=== PATIENT | male | born 1955 | race Caucasian/White ===

== ENCOUNTER 2019-12-04 13:04 | Outpatient (CLI) | payer BC ==
--- NOTE | 2019-12-04 13:44 | CT ---
EXAM: CT chest without contrast per low-dose cancer screening protocol HISTORY: History of smoking and nicotine dependence COMPARISON: None TECHNIQUE: Multiple contiguous axial images were obtained in a CT of the chest without contrast per l ow-dose cancer screening protocol. Sagittal and coronal reformats were performed. FINDINGS: Pulmonary nodules: No suspicious pulmonary nodules are seen. No focal infiltrates are seen. Pleural space: No pneumothorax or pleural effusion are seen. Heart: The heart is normal in size. Atherosclerotic calcifications in the coronary arteries and aorta . Mediastinum: No hilar or mediastinal lymphadenopathy appreciated on this limited noncontrast examinat ion. Bones: Status post sternotomy.. Visualized subdiaphragmatic structures: Left renal cyst. IMPRESSION: Lung RADS category 1-negative.
== END 2019-12-04 13:05 | disposition home or self-care (01) ==
LOC: CT 13:04
PROVIDERS: ATTEND Family Medicine
DX: Z12.2 Encounter for screening for malignant neoplasm of respiratory organs (principal); F17.210 Nicotine dependence, cigarettes, uncomplicated
CPT/HCPCS: G0297

== ENCOUNTER 2021-03-24 07:18 | Outpatient (CLI) | payer BC, MEDICARE | END 2021-03-24 07:19 | disposition home or self-care (01) | LOC: BICULT 07:18 | PROVIDERS: ATTEND Family Medicine | DX: Z13.6 Encounter for screening for cardiovascular disorders (principal); Z12.2 Encounter for screening for malignant neoplasm of respiratory organs; F17.210 Nicotine dependence, cigarettes, uncomplicated; R91.1 Solitary pulmonary nodule | CPT/HCPCS: 71271; 76775 ==

== ENCOUNTER 2021-04-03 07:15 | Outpatient (CLI) | payer BC, MEDICARE ==
[2021-04-03] MEDS ORDERED: Iopamidol-370 76% 500 ML 1 ML ONE (09:52)
== END 2021-04-03 07:16 | disposition home or self-care (01) ==
LOC: BICCT 07:15
PROVIDERS: ATTEND Urology
DX: R31.29 Other microscopic hematuria (principal); N28.1 Cyst of kidney, acquired; I70.90 Unspecified atherosclerosis; K57.30 Diverticulosis of large intestine without perforation or abscess without bleeding
CPT/HCPCS: 74178; Q9967

== ENCOUNTER 2021-06-08 15:25 | Outpatient (CLI) | payer BC, MEDICARE | END 2021-06-08 15:26 | disposition home or self-care (01) | LOC: ULT 15:25 | PROVIDERS: ATTEND Family Medicine | DX: M79.604 Pain in right leg (principal) ==

== ENCOUNTER 2021-08-20 11:40 | Outpatient (CLI) | payer BC, MEDICARE | END 2021-08-20 11:41 | disposition home or self-care (01) | LOC: BICRAD 11:40 | PROVIDERS: ATTEND Family Medicine | DX: S93.432A Sprain of tibiofibular ligament of left ankle, initial encounter (principal) ==

== ENCOUNTER 2022-03-26 07:43 | Outpatient (CLI) | payer BC, MEDICARE | END 2022-03-26 07:44 | disposition home or self-care (01) | LOC: BICCT 07:43 | PROVIDERS: ATTEND Family Medicine | DX: Z12.31 Encounter for screening mammogram for malignant neoplasm of breast (principal); F17.210 Nicotine dependence, cigarettes, uncomplicated; R91.8 Other nonspecific abnormal finding of lung field; I25.10 Atherosclerotic heart disease of native coronary artery without angina pectoris | CPT/HCPCS: 71271 ==

== ENCOUNTER 2022-03-27 17:17 | Inpatient (IN) | payer BC, MEDICARE ==
[~2022-03-27 17:17] MED LIST: Iopamidol 370 76% 100 ML VIAL ONE
[2022-03-27 17:46] LABS: #Eosinphils 0.1 thou/uL (0.0-0.7); #Lymphocytes 1.1 thou/uL (1.20-3.40); #Monocytes 1.4 thou/uL (0.11-0.59); #Neutrophils 11.1 thou/uL (1.40-6.50); %Basophils 0.2 % (0.0-1.0); %Eosinophils 0.7 % (0.0-10.0); %Lymphocytes 8.2 % (21.0-51.0); %Monocytes 10.1 % (0.0-10.0); %Neutrophils 80.8 % (42.0-75.0); Hemoglobin 16.6 g/dL (14.0-18.0); Mean Corpuscular HGB CONC 33.2 g/dL (32.0-36.0); Mean Corpuscular Hemoglobin 32.7 pg (27.0-31.0); Mean Corpuscular Volume 98.6 fL (78.0-98.0); Mean Platelet Volume 8.4 fL (7.4-10.4); Platelet Count 152 thou/uL (130-400); RBC Distribution Width 12.5 % (11.5-14.5); Red Blood Cell (RBC) Count 5.06 mill/uL (4.70-6.10); White Blood Cell (WBC) Count 13.8 thou/uL (4.8-10.8)
[2022-03-27 18:08] LABS: ALT (SGPT) 45 U/L (8-55); AST (SGOT) 30 U/L (5-34); Albumin 4.1 g/dL (3.4-4.8); Alkaline Phosphatase 72 U/L (40-110); Anion Gap 15 mmol/L (10-20); BUN (Urea Nitrogen) 13 mg/dL (8.4-25.7); Bilirubin, Total 1.3 mg/dL (0.2-1.2); Calc. Creatinine Clearance 0 mL/min (70-130); Calcium 8.8 mg/dL (7.8-10.44); Carbon Dioxide 24 mmol/L (23-31); Chloride 108 mmol/L (98-107); Globulin 2.5 g/dL (2.4-3.5); Glucose 104 mg/dL (80-115); Protein, Total 6.6 g/dL (5.8-8.1); Sodium 143 mmol/L (136-145)
[2022-03-27] MEDS ORDERED: Albuterol Sulfate 2.5 mg/3 ml Neb ONE (18:31)
[2022-03-27] MEDS ORDERED: Azithromycin 500 MG VIAL ONE (19:41)
[2022-03-27] MEDS ORDERED: cefTRIAXone\\ROCEPHIN 1 GM VIAL ONE (19:41)
[2022-03-27] MEDS ORDERED: Ondansetron PF 4 MG/2 ML Vial IVP PRN (20:32)
[2022-03-27] MEDS ORDERED: Acetaminophen 650 MG Suppository PR PRN (20:32)
[2022-03-27] MEDS ORDERED: Ondansetron ODT 4 MG TAB PO PRN (20:32)
[2022-03-27] MEDS ORDERED: Acetaminophen 325 MG TAB PO PRN (20:32)
[2022-03-27 21:43] VITALS: BMI 27.9
[2022-03-27 22:17] LABS: SARS-CoV-2 NAA Rapid Test Not Detected (NotDetected)
[2022-03-27] MEDS ORDERED: Metoprolol Tartrate 5 MG/5 ML VIAL IVP PRN (23:28)
[2022-03-28] MEDS ORDERED: cefTRIAXone\\ROCEPHIN 1 GM in Sodium Chloride 0.9% 100 ML IVPB SCH (01:00)
[2022-03-28] MEDS ORDERED: Enoxaparin Sodium 80 MG/0.8 ML SYRINGE SC SCH (01:00)
[2022-03-28 01:50] LABS: Troponin I 0.014 ng/mL (< 0.028)
[2022-03-28 01:52] LABS: Magnesium 1.6 mg/dL (1.6-2.6)
[2022-03-28 05:33] LABS: Anion Gap 12 mmol/L (10-20); BUN (Urea Nitrogen) 11 mg/dL (8.4-25.7); Calc. Creatinine Clearance 114 mL/min (70-130); Calcium 8.7 mg/dL (7.8-10.44); Carbon Dioxide 25 mmol/L (23-31); Chloride 106 mmol/L (98-107); Glucose 106 mg/dL (80-115); Potassium 3.6 mmol/L (3.5-5.1); Sodium 139 mmol/L (136-145)
[2022-03-28 05:35] LABS: #Basophils 0.1 thou/uL (0.0-0.2); #Lymphocytes 1.7 thou/uL (1.20-3.40); #Monocytes 1.6 thou/uL (0.11-0.59); #Neutrophils 8.9 thou/uL (1.40-6.50); %Basophils 0.4 % (0.0-1.0); %Eosinophils 0.3 % (0.0-10.0); %Monocytes 13.2 % (0.0-10.0); %Neutrophils 72.1 % (42.0-75.0); Hemoglobin 15.5 g/dL (14.0-18.0); Mean Corpuscular HGB CONC 33.2 g/dL (32.0-36.0); Platelet Count 124 thou/uL (130-400); RBC Distribution Width 12.5 % (11.5-14.5); Red Blood Cell (RBC) Count 4.58 mill/uL (4.70-6.10); White Blood Cell (WBC) Count 12.3 thou/uL (4.8-10.8)
[2022-03-28] MEDS: Atorvastatin Calcium 10 MG TAB PO SCH (08:07)
[2022-03-28] MEDS: Aspirin 325 MG TAB PO SCH (08:07)
[2022-03-28] MEDS ORDERED: Furosemide 20 MG/2 ML VIAL SLOW IVP SCH (11:45)
[2022-03-28] MEDS ORDERED: Potassium Chloride 20 MEQ TAB PO SCH (11:45)
[2022-03-28] MEDS ORDERED: Electrolyte Replacement Protocol 1 EACH FS SCH (13:15)
[2022-03-28] MEDS ORDERED: Magnesium 2 GM/50 ML(in water) 2 GM in Premix Bag 1 BAG IVPB SCH (14:15)
[2022-03-28] MEDS: Carvedilol 6.25 MG TAB PO SCH (15:49)
[2022-03-28] MEDS: Enoxaparin Sodium 80 MG/0.8 ML SYRINGE SC SCH ×2 (16:02→16:03)
[2022-03-28] MEDS: Azithromycin 500 MG in Sodium Chloride 0.9% 250 ML 250 ML IVPB SCH (20:25)
[2022-03-28] MEDS: cefTRIAXone\\ROCEPHIN 1 GM in Sodium Chloride 0.9% 100 ML IVPB SCH (21:37)
[2022-03-29 05:50] LABS: Cardiac Risk 3.4 (Less than 4.5); Cholesterol 141 mg/dl (< 200 Desired); HDL Cholesterol 42 mg/dL (>60 Neg Risk); LDL Cholesterol, Calculated 83 mg/dL; Triglycerides 82 mg/dL (Less than 150)
[2022-03-29 06:01] LABS: Troponin I 0.011 ng/mL (< 0.028)
[2022-03-29] MEDS ORDERED: Magnesium 2 GM/50 ML(in water) 2 GM in Premix Bag 1 BAG IVPB SCH (08:00)
[2022-03-29] MEDS ORDERED: Regadenoson 0.4 MG/5 ML SYRINGE ONE (08:11)
[2022-03-29] MEDS: Aspirin 325 MG TAB PO SCH (11:13)
[2022-03-29] MEDS: Atorvastatin Calcium 10 MG TAB PO SCH (11:13)
[2022-03-29] MEDS: Enoxaparin Sodium 80 MG/0.8 ML SYRINGE SC SCH ×2 (11:13→19:55)
[2022-03-29] MEDS: Carvedilol 6.25 MG TAB PO SCH ×2 (11:13→18:17)
[2022-03-29] MEDS ORDERED: Carvedilol 6.25 MG TAB PO SCH (18:00)
[2022-03-29] MEDS: Azithromycin 500 MG in Sodium Chloride 0.9% 250 ML 250 ML IVPB SCH (19:55)
[2022-03-29] MEDS: cefTRIAXone\\ROCEPHIN 1 GM in Sodium Chloride 0.9% 100 ML IVPB SCH (21:07)
[2022-03-30 05:25] LABS: #Eosinphils 0.1 thou/uL (0.0-0.7); #Lymphocytes 1.4 thou/uL (1.20-3.40); #Monocytes 1.6 thou/uL (0.11-0.59); #Neutrophils 8.9 thou/uL (1.40-6.50); %Basophils 0.4 % (0.0-1.0); %Lymphocytes 11.4 % (21.0-51.0); %Monocytes 13.2 % (0.0-10.0); Hemoglobin 15.6 g/dL (14.0-18.0); Mean Corpuscular HGB CONC 32.3 g/dL (32.0-36.0); Mean Corpuscular Hemoglobin 33.1 pg (27.0-31.0); Mean Platelet Volume 9.4 fL (7.4-10.4); Platelet Count 138 thou/uL (130-400); Red Blood Cell (RBC) Count 4.71 mill/uL (4.70-6.10)
[2022-03-30 05:53] LABS: ALT (SGPT) 29 U/L (8-55); AST (SGOT) 18 U/L (5-34); Albumin 3.8 g/dL (3.4-4.8); Alkaline Phosphatase 66 U/L (40-110); Anion Gap 14 mmol/L (10-20); BUN (Urea Nitrogen) 13 mg/dL (8.4-25.7); Bilirubin, Total 0.8 mg/dL (0.2-1.2); Calc. Creatinine Clearance 107 mL/min (70-130); Calcium 8.7 mg/dL (7.8-10.44); Carbon Dioxide 25 mmol/L (23-31); Chloride 105 mmol/L (98-107); Globulin 2.9 g/dL (2.4-3.5); Glucose 103 mg/dL (80-115); Phosphorus 3.4 mg/dL (2.3-4.7); Potassium 4.2 mmol/L (3.5-5.1); Protein, Total 6.7 g/dL (5.8-8.1); Sodium 140 mmol/L (136-145)
[2022-03-30] MEDS ORDERED: Magnesium 2 GM/50 ML(in water) 2 GM in Premix Bag 1 BAG IVPB SCH (08:00)
[2022-03-30] MEDS ORDERED: Carvedilol 6.25 MG TAB PO SCH (08:00)
[2022-03-30] MEDS ORDERED: PROPOFOL 200 MG/20 ML VIAL ONE (09:20)
[2022-03-30] MEDS: Aspirin 325 MG TAB PO SCH (10:42)
[2022-03-30] MEDS: Atorvastatin Calcium 10 MG TAB PO SCH (10:45)
[2022-03-30] MEDS: Enoxaparin Sodium 80 MG/0.8 ML SYRINGE SC SCH (10:45)
[2022-03-30] MEDS ORDERED: Apixaban 5 MG TAB PO SCH ×2 (14:00→21:00)
[2022-03-30 15:08] VITALS: BP 123/76; TEMP 97.8
[2022-03-31] MEDS ORDERED: Aspirin 81 mg Enteric Coated Tablet PO SCH (09:00)
== END 2022-03-30 16:45 | disposition home or self-care (01) | DRG 177 ==
LOC: ERS 17:17 → 2SW 19:53 → OBSVTOIN 03-29 13:43
PROVIDERS: ADMIT Student in an Organized Health Care Education/Training Program; ATTEND Internal Medicine
PROC: 5A2204Z Restoration of Cardiac Rhythm, Single (ICD-10-PCS; principal; 2022-03-30)
PROC: B24BZZ4 Ultrasonography of Heart with Aorta, Transesophageal (ICD-10-PCS; 2022-03-30)
DX: J15.6 Pneumonia due to other Gram-negative bacteria (principal); I50.23 Acute on chronic systolic (congestive) heart failure; I48.92 Unspecified atrial flutter; Z20.822 Contact with and (suspected) exposure to COVID-19; E78.5 Hyperlipidemia, unspecified; F17.210 Nicotine dependence, cigarettes, uncomplicated; I25.10 Atherosclerotic heart disease of native coronary artery without angina pectoris; E80.6 Other disorders of bilirubin metabolism; I48.91 Unspecified atrial fibrillation; I11.0 Hypertensive heart disease with heart failure; E78.00 Pure hypercholesterolemia, unspecified; I34.0 Nonrheumatic mitral (valve) insufficiency; E83.42 Hypomagnesemia; D69.6 Thrombocytopenia, unspecified; I25.2 Old myocardial infarction; Z95.1 Presence of aortocoronary bypass graft; Z79.82 Long term (current) use of aspirin; Z79.899 Other long term (current) drug therapy; Z71.6 Tobacco abuse counseling; Z12.31 Encounter for screening mammogram for malignant neoplasm of breast; R91.8 Other nonspecific abnormal finding of lung field
CPT/HCPCS: 36415; 71045; 71271; 71275; 78452; 80048; 80053; 80061; 82607; 82746; 83735; 83880; 84100; 84443; 84484; 85025; 92960; 93005; 93010; 93017; 93306; 93312; 94640; 96365; 96366; 96367; 96372; 96375; A9500; G0378; J0456; J0696; J1650; J1940; J2704; J2785; J3475; J3490; J7050; J7611; J7620; Q9967; U0002

== ENCOUNTER 2022-05-11 15:58 | Outpatient (CLI) | payer BC, MEDICARE | END 2022-05-11 15:59 | disposition home or self-care (01) | LOC: BICRAD 15:58 | PROVIDERS: ATTEND Family Medicine | DX: M25.521 Pain in right elbow (principal); J16.8 Pneumonia due to other specified infectious organisms; M79.89 Other specified soft tissue disorders | CPT/HCPCS: 71046 ==

== ENCOUNTER 2022-05-28 19:00 | Outpatient (CLI) | payer BC, MEDICARE | END 2022-05-28 19:01 | disposition home or self-care (01) | LOC: SLEEPLAB 19:00 | PROVIDERS: ATTEND Family Medicine | DX: G47.33 Obstructive sleep apnea (adult) (pediatric) (principal); G47.9 Sleep disorder, unspecified; R06.83 Snoring; G47.00 Insomnia, unspecified; I11.0 Hypertensive heart disease with heart failure; J44.9 Chronic obstructive pulmonary disease, unspecified; I50.9 Heart failure, unspecified; I25.10 Atherosclerotic heart disease of native coronary artery without angina pectoris; G47.10 Hypersomnia, unspecified; G47.61 Periodic limb movement disorder | CPT/HCPCS: 95810 ==

== ENCOUNTER 2022-06-23 15:17 | Outpatient (CLI) | payer BC, MEDICARE ==
[~2022-06-23 15:17] MED LIST changes: -Iopamidol 370 76% 100 ML VIAL ONE; +Iopamidol-370 76% 500 ML 1 ML ONE
== END 2022-06-23 15:18 | disposition home or self-care (01) ==
LOC: BICCT 15:17
PROVIDERS: ATTEND Urology
DX: N28.1 Cyst of kidney, acquired (principal); R31.29 Other microscopic hematuria; N28.9 Disorder of kidney and ureter, unspecified; K57.30 Diverticulosis of large intestine without perforation or abscess without bleeding; S32.010A Wedge compression fracture of first lumbar vertebra, initial encounter for closed fracture
CPT/HCPCS: 74178; 82565; Q9967

== ENCOUNTER 2022-10-20 05:28 | Day surgery (SDC) | payer BC, MEDICARE ==
[2022-10-19 09:17] VITALS: BMI 28.1
[2022-10-20] MEDS ORDERED: Heparin 10,000 UNITS/ 10 ML VIAL ONE (06:41)
[2022-10-20] MEDS ORDERED: Heparin 25,000 units/D5W 500 ML ONE (06:41)
[2022-10-20] MEDS ORDERED: Protamine Sulfate 50 MG/5 ML VIAL ONE ×2 (06:41→10:44)
[2022-10-20] MEDS ORDERED: SUGAMMADEX SODIUM 200 MG/2 ML VIAL ONE (07:13)
[2022-10-20] MEDS ORDERED: FENTANYL 50 MCG/ML 1 ML VIAL ONE (07:13)
[2022-10-20] MEDS ORDERED: Ondansetron PF 4 MG/2 ML Vial ONE (07:51)
[2022-10-20] MEDS ORDERED: PHENYLEPHRINE-NS 100 MCG/ML 10 ML SYRINGE ONE (07:51)
[2022-10-20] MEDS ORDERED: Rocuronium Bromide 10 MG/ML (10ML VIAL) ONE (07:51)
[2022-10-20] MEDS ORDERED: PROPOFOL 200 MG/20 ML VIAL ONE (07:51)
[2022-10-20] MEDS ORDERED: Lidocaine 1% PF 5 ML VIAL ONE (07:51)
[2022-10-20] MEDS ORDERED: ePHEDrine 50 MG/ML VIAL ONE (07:51)
[2022-10-20] MEDS ORDERED: Esmolol 100 MG/10 ML VIAL ONE (07:51)
[2022-10-20] MEDS ORDERED: Dexamethasone 20 MG/5 ML VIAL ONE (07:51)
[2022-10-20] MEDS ORDERED: Isoproterenol 0.2 MG/1 ML AMP ONE (08:55)
[2022-10-20] MEDS ORDERED: Midazolam HCl 2 mg/2 ml Vial ONE (09:40)
[2022-10-20] MEDS ORDERED: Phenylephrine 10 MG/ML VIAL ONE (09:47)
[2022-10-20] MEDS ORDERED: Promethazine HCl 25 MG/ML VIAL IVPB PRN (10:52)
[2022-10-20] MEDS ORDERED: FENTANYL 50 MCG/ML 1 ML VIAL SLOW IVP PRN (10:52)
[2022-10-20] MEDS ORDERED: Ketorolac Tromethamine 30 MG/ML VIAL IVP PRN ×2 (10:52→11:08)
[2022-10-20] MEDS ORDERED: Furosemide 40 MG TAB PO PRN (11:08)
[2022-10-20] MEDS ORDERED: Potassium Chloride 20 MEQ TAB PO PRN (11:08)
[2022-10-20] MEDS ORDERED: Sucralfate 1 GM TAB PO SCH (11:30)
[2022-10-20] MEDS ORDERED: HYDROcodone/Acetaminophen 5/325 mg Tablet ONE (14:55)
== END 2022-10-20 15:15 | disposition home or self-care (01) ==
LOC: SDC 05:28
PROVIDERS: ATTEND Internal Medicine Cardiovascular Disease
PROC: 4A023FZ Measurement of Cardiac Rhythm, Percutaneous Approach (ICD-10-PCS; principal; 2022-10-20)
PROC: 02583ZZ Destruction of Conduction Mechanism, Percutaneous Approach (ICD-10-PCS; principal; 2022-10-20)
PROC: 02K83ZZ Map Conduction Mechanism, Percutaneous Approach (ICD-10-PCS; principal; 2022-10-20)
PROC: 4A0234Z Measurement of Cardiac Electrical Activity, Percutaneous Approach (ICD-10-PCS; principal; 2022-10-20)
PROC: B244ZZ3 Ultrasonography of Right Heart, Intravascular (ICD-10-PCS; principal; 2022-10-20)
DX: I48.19 Other persistent atrial fibrillation (principal); I48.3 Typical atrial flutter; I25.5 Ischemic cardiomyopathy; I25.10 Atherosclerotic heart disease of native coronary artery without angina pectoris; I11.0 Hypertensive heart disease with heart failure; I50.20 Unspecified systolic (congestive) heart failure; I08.3 Combined rheumatic disorders of mitral, aortic and tricuspid valves; F17.210 Nicotine dependence, cigarettes, uncomplicated; E78.5 Hyperlipidemia, unspecified; G47.30 Sleep apnea, unspecified; Z79.01 Long term (current) use of anticoagulants; Z79.82 Long term (current) use of aspirin; Z79.899 Other long term (current) drug therapy; Z95.1 Presence of aortocoronary bypass graft
CPT/HCPCS: 85347; 93005; 93622; 93623; 93655; 93656; C1732; C1759; C1760; C1769; C1894; J1100; J1644; J2250; J2370; J2405; J2704; J2720; J3010; J3490

== ENCOUNTER 2022-11-25 12:15 | Outpatient (CLI) | payer BC, MEDICARE ==
[2022-11-25 13:31] LABS: Hemoglobin 15.8 g/dL (13.5-17.5); Mean Corpuscular HGB CONC 33.6 g/dL (32.0-36.0); Mean Corpuscular Hemoglobin 31.8 pg (27.0-33.0); Mean Corpuscular Volume 94.6 fl (81.2-95.1); Mean Platelet Volume 10.7 fl (7.4-10.4); Platelet Count 213 10x3/uL (150-450); RBC Distribution Width 13.4 % (11.5-14.5); Red Blood Cell (RBC) Count 4.97 10x6/uL (4.32-5.72); White Blood Cell (WBC) Count 9.7 10x3/uL (3.5-10.5)
[2022-11-25 13:42] LABS: INR-International Normal Ratio 1.2; Prothrombin Time 12.4 sec (9.5-12.1)
[2022-11-25 13:51] LABS: Anion Gap 14 mmol/L (10-20); BUN (Urea Nitrogen) 10 mg/dL (8.4-25.7); Calc. Creatinine Clearance 0 mL/min (70-130); Calcium 9.4 mg/dL (7.8-10.44); Carbon Dioxide 27 mmol/L (23-31); Chloride 105 mmol/L (98-107); Estimated GFR 95; Glucose 77 mg/dL (80-115); Potassium 3.9 mmol/L (3.5-5.1); Sodium 142 mmol/L (136-145)
[2022-11-25 14:11] LABS: Thyroid Stimulating Hormone 4.1115 uIU/mL (0.35-4.94)
[2022-11-25 20:32] LABS: T4 6.4 ug/dL (4.87-11.72)
== END 2022-11-25 12:16 | disposition home or self-care (01) ==
LOC: LABBT 12:15
PROVIDERS: ATTEND Internal Medicine Cardiovascular Disease
DX: Z01.812 Encounter for preprocedural laboratory examination (principal); I48.0 Paroxysmal atrial fibrillation
CPT/HCPCS: 80048; 84436; 84443; 84480; 85027; 85610; 85730

== ENCOUNTER 2022-11-26 09:44 | Day surgery (SDC) | payer BC, MEDICARE ==
[2022-11-24 13:28] VITALS: BMI 27.0
[2022-11-26] MEDS ORDERED: PROPOFOL 200 MG/20 ML VIAL ONE (12:17)
[2022-11-26] MEDS ORDERED: Lidocaine 1% PF 5 ML VIAL ONE (12:17)
== END 2022-11-26 13:15 | disposition home or self-care (01) ==
LOC: SDC 09:44
PROVIDERS: ATTEND Internal Medicine Cardiovascular Disease
PROC: 5A2204Z Restoration of Cardiac Rhythm, Single (ICD-10-PCS; principal; 2022-11-26)
DX: I48.0 Paroxysmal atrial fibrillation (principal); I48.3 Typical atrial flutter; I25.5 Ischemic cardiomyopathy; I25.10 Atherosclerotic heart disease of native coronary artery without angina pectoris; I11.0 Hypertensive heart disease with heart failure; I50.20 Unspecified systolic (congestive) heart failure; E78.5 Hyperlipidemia, unspecified; G47.30 Sleep apnea, unspecified; Z79.01 Long term (current) use of anticoagulants; Z79.82 Long term (current) use of aspirin; Z79.899 Other long term (current) drug therapy; Z95.1 Presence of aortocoronary bypass graft
CPT/HCPCS: 92960; 93005; 93010; J2704

== ENCOUNTER 2023-04-29 08:04 | Outpatient (CLI) | payer BC, MEDICARE | END 2023-04-29 08:05 | disposition home or self-care (01) | LOC: RAD 08:04 | PROVIDERS: ATTEND Internal Medicine Cardiovascular Disease | DX: Z92.29 Personal history of other drug therapy (principal) | CPT/HCPCS: 71046 ==

== ENCOUNTER 2024-09-13 07:28 | Outpatient (CLI) | payer BC, MEDICARE | END 2024-09-13 07:29 | disposition home or self-care (01) | LOC: BICCT 07:28 | PROVIDERS: ATTEND Family Medicine | DX: Z12.2 Encounter for screening for malignant neoplasm of respiratory organs (principal); F17.210 Nicotine dependence, cigarettes, uncomplicated | CPT/HCPCS: 71271 ==

== ENCOUNTER 2025-05-30 07:28 | Emergency (ER) | payer MEDICARE, BC ==
[2025-05-30 09:04] LABS: #Basophils 0.03 10x3/uL (0.0-0.2); #Eosinophils Less than 0.03 10x3/uL (0.0-0.7); #Monocytes 1.83 10x3/uL (0.11-0.59); #Neutrophils 10.44 10x3/uL (1.40-6.50); %Basophils 0.2 % (0.0-1.0); %Eosinophils 0.0 % (0.0-10.0); %Lymphocytes 5.0 % (21.0-51.0); %Monocytes 14.1 % (0.0-10.0); %Neutrophils 80.3 % (42.0-75.0); Hematocrit 43.1 % (42.0-52.0); Hemoglobin 14.3 g/dL (14.0-18.0); Mean Corpuscular Hemoglobin 31.4 pg (27.0-31.0); Mean Corpuscular Volume 94.5 fL (78.0-98.0); Platelet Count 160 10x3/uL (130-400); Red Blood Cell (RBC) Count 4.56 mill/uL (4.70-6.10); White Blood Cell (WBC) Count 13.00 10x3/uL (4.8-10.8)
[2025-05-30 09:19] LABS: ALT (SGPT) 29 U/L (Less than 45); AST (SGOT) 26 U/L (11-34); Albumin 3.7 g/dL (3.1-4.5); Alkaline Phosphatase 99 U/L (40-110); Anion Gap 15 mmol/L (10-20); BUN (Urea Nitrogen) 15 mg/dL (8.4-25.7); Bilirubin, Total 1.8 mg/dL (0.3-1.2); Calc. Creatinine Clearance 0 mL/min (70-130); Calcium 8.5 mg/dL (7.8-10.44); Carbon Dioxide 24 mmol/L (23-31); Chloride 103 mmol/L (98-107); Globulin 3.4 g/dL (2.4-3.5); Glucose 140 mg/dL (80-115); Potassium 3.7 mmol/L (3.5-5.1); Sodium 138 mmol/L (136-145)
[2025-05-30 09:23] LABS: Troponin I 0.014 ng/mL (< 0.028)
[2025-05-30] MEDS ORDERED: cefTRIAXone (ROCEPHIN) 1 GM VIAL ONE (09:24)
== END 2025-05-30 10:18 | disposition home or self-care (01) ==
LOC: ERS 07:28
DX: J44.1 Chronic obstructive pulmonary disease with (acute) exacerbation (principal); E78.00 Pure hypercholesterolemia, unspecified; F17.210 Nicotine dependence, cigarettes, uncomplicated; Z79.82 Long term (current) use of aspirin; Z79.899 Other long term (current) drug therapy
CPT/HCPCS: 71046; 80053; 83880; 84484; 85025; 87428; 93005; 94640; J0696; J2919; 96374; 96375; J7620

== ENCOUNTER 2025-06-02 13:46 | Inpatient (IN) | payer MEDICARE, BC ==
[~2025-06-02 13:46] MED LIST changes: +Iopamidol 370 76% 100 ML VIAL ONE; -Iopamidol-370 76% 500 ML 1 ML ONE
[2025-06-02] MEDS ORDERED: cefTRIAXone (ROCEPHIN) 1 GM VIAL ONE (14:46)
[2025-06-02] MEDS ORDERED: cefTRIAXone (ROCEPHIN) 2 GM VIAL ONE (14:49)
[2025-06-02] MEDS ORDERED: Magnesium 2 GM/50 ML BAG (IN WATER) ONE (14:51)
[2025-06-02] MEDS ORDERED: Albuterol 2.5 MG (3 mL) NEB ONE (14:55)
[2025-06-02] MEDS ORDERED: Albuterol 2.5 MG (0.5 mL) NEB ONE (14:55)
[2025-06-02 15:04] LABS: #Basophils Less than 0.03 10x3/uL (0.0-0.2); #Eosinophils 0.03 10x3/uL (0.0-0.7); #Monocytes 1.74 10x3/uL (0.11-0.59); #Neutrophils 12.23 10x3/uL (1.40-6.50); %Basophils 0.1 % (0.0-1.0); %Eosinophils 0.2 % (0.0-10.0); %Lymphocytes 5.5 % (21.0-51.0); %Monocytes 11.7 % (0.0-10.0); %Neutrophils 82.0 % (42.0-75.0); Hematocrit 42.5 % (42.0-52.0); Hemoglobin 14.1 g/dL (14.0-18.0); Mean Corpuscular Hemoglobin 31.4 pg (27.0-31.0); Mean Corpuscular Volume 94.7 fL (78.0-98.0); Platelet Count 203 10x3/uL (130-400); Red Blood Cell (RBC) Count 4.49 mill/uL (4.70-6.10); White Blood Cell (WBC) Count 14.91 10x3/uL (4.8-10.8)
[2025-06-02 15:15] LABS: INR-International Normal Ratio 1.7; Prothrombin Time 20.0 sec (12.0-14.7)
[2025-06-02 15:16] LABS: PTT 46.4 sec (22.9-36.1)
[2025-06-02 15:25] LABS: ALT (SGPT) 159 U/L (Less than 45); AST (SGOT) 99 U/L (11-34); Albumin 3.1 g/dL (3.1-4.5); Alkaline Phosphatase 128 U/L (40-110); Anion Gap 14 mmol/L (10-20); BUN (Urea Nitrogen) 18 mg/dL (8.4-25.7); Bilirubin, Total 1.2 mg/dL (0.3-1.2); Calc. Creatinine Clearance 0 mL/min (70-130); Calcium 8.4 mg/dL (7.8-10.44); Carbon Dioxide 26 mmol/L (23-31); Chloride 104 mmol/L (98-107); Globulin 3.7 g/dL (2.4-3.5); Glucose 110 mg/dL (80-115); Magnesium 2.1 mg/dL (1.6-2.6); Potassium 4.0 mmol/L (3.5-5.1); Sodium 140 mmol/L (136-145)
[2025-06-02 15:30] LABS: Troponin I Less than 0.010 ng/mL (< 0.028)
[2025-06-02] MEDS ORDERED: Azithromycin 500 MG VIAL ONE (15:51)
[2025-06-02 19:04] LABS: Actual Bicarbonate (HCO3v) 25.5 mEq/L (22-28); Base Excess 3.0 mEq/L (-2.0 to +3.0); Calcium, Ionized (venous) 0.85 mmol/L (1.16-1.32); Chloride (VBG) 105 mmol/L (98-106); Hematocrit-VBG 43 % (42.0-52.0); Hemoglobin (Hb) 14.5 g/dL (12.6-17.4); Potassium (VBG) 4.44 mmol/L (3.70-5.30); Sodium 136 mmol/L (133-146)
[2025-06-02] MEDS ORDERED: Ondansetron PF 4 MG/2 ML Vial IVP PRN (19:37)
[2025-06-02] MEDS ORDERED: Albuterol 2.5 MG (3 mL) NEB NEB PRN (19:39)
[2025-06-02 20:39] VITALS: BMI 28.1
[2025-06-02] MEDS: Furosemide 20 MG (2 mL) VIAL SLOW IVP SCH (20:43)
[2025-06-02 22:10] LABS: Legionella Urinary Ag Negative (Negative); Strep pneumo Urine Ag NEGATIVE (NEGATIVE)
[2025-06-03] MEDS: Mometasone 100 MCG/Formoterol 5 MCG 120 PUFF INHALER INH SCH (07:02)
[2025-06-03 08:15] LABS: #Basophils Less than 0.03 10x3/uL (0.0-0.2); #Eosinophils Less than 0.03 10x3/uL (0.0-0.7); #Monocytes 0.47 10x3/uL (0.11-0.59); #Neutrophils 9.11 10x3/uL (1.40-6.50); %Basophils 0.1 % (0.0-1.0); %Eosinophils 0.0 % (0.0-10.0); %Lymphocytes 6.2 % (21.0-51.0); %Monocytes 4.6 % (0.0-10.0); %Neutrophils 88.7 % (42.0-75.0); Hematocrit 40.2 % (42.0-52.0); Hemoglobin 12.9 g/dL (14.0-18.0); Mean Corpuscular Hemoglobin 31.3 pg (27.0-31.0); Mean Corpuscular Volume 97.6 fL (78.0-98.0); Platelet Count 199 10x3/uL (130-400); Red Blood Cell (RBC) Count 4.12 mill/uL (4.70-6.10); White Blood Cell (WBC) Count 10.27 10x3/uL (4.8-10.8)
[2025-06-03 08:28] LABS: ALT (SGPT) 137 U/L (Less than 45); AST (SGOT) 54 U/L (11-34); Albumin 2.8 g/dL (3.1-4.5); Alkaline Phosphatase 110 U/L (40-110); Anion Gap 16 mmol/L (10-20); BUN (Urea Nitrogen) 20 mg/dL (8.4-25.7); Bilirubin, Total 0.7 mg/dL (0.3-1.2); Calc. Creatinine Clearance 113 mL/min (70-130); Calcium 8.3 mg/dL (7.8-10.44); Carbon Dioxide 27 mmol/L (23-31); Chloride 107 mmol/L (98-107); Globulin 3.5 g/dL (2.4-3.5); Glucose 219 mg/dL (80-115); Potassium 4.8 mmol/L (3.5-5.1); Sodium 145 mmol/L (136-145)
[2025-06-03] MEDS ORDERED: Amiodarone 200 MG TAB PO SCH (09:00)
[2025-06-03] MEDS: Aspirin 81 mg Enteric Coated Tablet PO SCH (09:18)
[2025-06-03] MEDS: Valsartan 80 MG TAB PO SCH (09:18)
[2025-06-03] MEDS: Carvedilol 25 MG TAB PO SCH (09:19)
[2025-06-03] MEDS: Allopurinol 100 MG TAB PO SCH (09:20)
[2025-06-03] MEDS: Apixaban 5 MG TAB PO SCH (09:20)
[2025-06-03] MEDS: Dorzolamide HCl 2% Ophth (10 mL) Bottle EA EYE SCH (09:20)
[2025-06-03] MEDS: cefTRIAXone\\ROCEPHIN 1 GM in Sodium Chloride 0.9% 100 ML IVPB SCH (13:34)
[2025-06-03] MEDS: Acetaminophen 500 MG TAB PO PRN (20:44)
[2025-06-04 05:50] LABS: #Basophils Less than 0.03 10x3/uL (0.0-0.2); #Eosinophils Less than 0.03 10x3/uL (0.0-0.7); #Monocytes 0.91 10x3/uL (0.11-0.59); #Neutrophils 13.51 10x3/uL (1.40-6.50); %Basophils 0.1 % (0.0-1.0); %Eosinophils 0.0 % (0.0-10.0); %Lymphocytes 4.9 % (21.0-51.0); %Monocytes 6.0 % (0.0-10.0); %Neutrophils 88.5 % (42.0-75.0); Hematocrit 38.8 % (42.0-52.0); Hemoglobin 12.1 g/dL (14.0-18.0); Mean Corpuscular Hemoglobin 30.6 pg (27.0-31.0); Mean Corpuscular Volume 98.0 fL (78.0-98.0); Platelet Count 209 10x3/uL (130-400); Red Blood Cell (RBC) Count 3.96 mill/uL (4.70-6.10); White Blood Cell (WBC) Count 15.27 10x3/uL (4.8-10.8)
[2025-06-04 06:10] LABS: ALT (SGPT) 176 U/L (Less than 45); AST (SGOT) 82 U/L (11-34); Albumin 2.7 g/dL (3.1-4.5); Alkaline Phosphatase 111 U/L (40-110); Anion Gap 13 mmol/L (10-20); BUN (Urea Nitrogen) 21 mg/dL (8.4-25.7); Bilirubin, Total 0.6 mg/dL (0.3-1.2); Calc. Creatinine Clearance 113 mL/min (70-130); Calcium 8.1 mg/dL (7.8-10.44); Carbon Dioxide 28 mmol/L (23-31); Chloride 103 mmol/L (98-107); Globulin 3.2 g/dL (2.4-3.5); Glucose 346 mg/dL (80-115); Potassium 4.6 mmol/L (3.5-5.1); Sodium 139 mmol/L (136-145)
[2025-06-04] MEDS: Melatonin 3 MG TAB PO PRN (20:55)
[2025-06-05 06:42] LABS: #Basophils Less than 0.03 10x3/uL (0.0-0.2); #Eosinophils Less than 0.03 10x3/uL (0.0-0.7); #Monocytes 0.79 10x3/uL (0.11-0.59); #Neutrophils 12.15 10x3/uL (1.40-6.50); %Basophils 0.1 % (0.0-1.0); %Eosinophils 0.0 % (0.0-10.0); %Lymphocytes 6.0 % (21.0-51.0); %Monocytes 5.7 % (0.0-10.0); %Neutrophils 87.4 % (42.0-75.0); Hematocrit 40.6 % (42.0-52.0); Hemoglobin 12.4 g/dL (14.0-18.0); Mean Corpuscular Hemoglobin 30.3 pg (27.0-31.0); Mean Corpuscular Volume 99.3 fL (78.0-98.0); Platelet Count 209 10x3/uL (130-400); Red Blood Cell (RBC) Count 4.09 mill/uL (4.70-6.10); White Blood Cell (WBC) Count 13.89 10x3/uL (4.8-10.8)
[2025-06-05 07:09] LABS: ALT (SGPT) 169 U/L (Less than 45); AST (SGOT) 49 U/L (11-34); Albumin 2.7 g/dL (3.1-4.5); Alkaline Phosphatase 104 U/L (40-110); Anion Gap 13 mmol/L (10-20); BUN (Urea Nitrogen) 21 mg/dL (8.4-25.7); Bilirubin, Total 0.6 mg/dL (0.3-1.2); Calc. Creatinine Clearance 113 mL/min (70-130); Calcium 8.0 mg/dL (7.8-10.44); Carbon Dioxide 29 mmol/L (23-31); Chloride 101 mmol/L (98-107); Globulin 3.0 g/dL (2.4-3.5); Glucose 353 mg/dL (80-115); Potassium 4.8 mmol/L (3.5-5.1); Sodium 138 mmol/L (136-145)
[2025-06-06] MEDS: Furosemide 40 MG (4 mL) VIAL SLOW IVP SCH ×2 (10:55→13:47)
[2025-06-07 05:59] LABS: #Basophils 0.03 10x3/uL (0.0-0.2); #Eosinophils Less than 0.03 10x3/uL (0.0-0.7); #Monocytes 1.35 10x3/uL (0.11-0.59); #Neutrophils 15.83 10x3/uL (1.40-6.50); %Basophils 0.2 % (0.0-1.0); %Eosinophils 0.0 % (0.0-10.0); %Lymphocytes 6.2 % (21.0-51.0); %Monocytes 7.3 % (0.0-10.0); %Neutrophils 85.4 % (42.0-75.0); Hematocrit 42.2 % (42.0-52.0); Hemoglobin 13.9 g/dL (14.0-18.0); Mean Corpuscular Hemoglobin 30.9 pg (27.0-31.0); Mean Corpuscular Volume 93.8 fL (78.0-98.0); Platelet Count 270 10x3/uL (130-400); Red Blood Cell (RBC) Count 4.50 mill/uL (4.70-6.10); White Blood Cell (WBC) Count 18.52 10x3/uL (4.8-10.8)
[2025-06-07 06:09] LABS: ALT (SGPT) 122 U/L (Less than 45); AST (SGOT) 21 U/L (11-34); Albumin 3.1 g/dL (3.1-4.5); Alkaline Phosphatase 98 U/L (40-110); Anion Gap 14 mmol/L (10-20); BUN (Urea Nitrogen) 26 mg/dL (8.4-25.7); Bilirubin, Total 0.8 mg/dL (0.3-1.2); Calc. Creatinine Clearance 101 mL/min (70-130); Calcium 8.5 mg/dL (7.8-10.44); Carbon Dioxide 34 mmol/L (23-31); Chloride 93 mmol/L (98-107); Globulin 3.1 g/dL (2.4-3.5); Glucose 298 mg/dL (80-115); Potassium 4.1 mmol/L (3.5-5.1); Sodium 137 mmol/L (136-145)
[2025-06-07 11:00] VITALS: BMI 28.1
[2025-06-07 15:45] VITALS: BP 147/68; TEMP 97.8
== END 2025-06-07 17:55 | disposition home or self-care (01) | DRG 871 ==
LOC: ERS 13:46 → T4-B 18:31
PROVIDERS: ADMIT Family Medicine; ATTEND Internal Medicine
DX: A41.9 Sepsis, unspecified organism (principal); I50.43 Acute on chronic combined systolic (congestive) and diastolic (congestive) heart failure; J18.9 Pneumonia, unspecified organism; J96.01 Acute respiratory failure with hypoxia; I48.92 Unspecified atrial flutter; J44.1 Chronic obstructive pulmonary disease with (acute) exacerbation; E78.5 Hyperlipidemia, unspecified; E78.00 Pure hypercholesterolemia, unspecified; M10.9 Gout, unspecified; G47.30 Sleep apnea, unspecified; F10.90 Alcohol use, unspecified, uncomplicated; I11.0 Hypertensive heart disease with heart failure; I25.10 Atherosclerotic heart disease of native coronary artery without angina pectoris; G47.33 Obstructive sleep apnea (adult) (pediatric); H91.93 Unspecified hearing loss, bilateral; Z95.1 Presence of aortocoronary bypass graft; Z98.890 Other specified postprocedural states; Z87.891 Personal history of nicotine dependence; Z79.01 Long term (current) use of anticoagulants
CPT/HCPCS: 36415; 71045; 71046; 71275; 80053; 82805; 83605; 83735; 83880; 84484; 85025; 85610; 85730; 87040; 87428; 87449; 87899; 93005; 93010; 93306; 94640; 94664; 96365; 96368; 96374; 96375; J0456; J0696; J1940; J2919; J3475; J7611; J7620; Q9967

== ENCOUNTER 2025-07-05 08:19 | Outpatient (CLI) | payer BC, MEDICARE | END 2025-07-05 08:20 | disposition home or self-care (01) | LOC: RAD 08:19 | PROVIDERS: ATTEND Internal Medicine | DX: J44.1 Chronic obstructive pulmonary disease with (acute) exacerbation (principal); I51.7 Cardiomegaly | CPT/HCPCS: 71046 ==